=== PATIENT | female | born 1980 | race Caucasian/White ===

== ENCOUNTER 2019-11-26 16:47 | Emergency (ER) | payer OTHER ==
[~2019-11-26] VITALS: Ht 172.7 cm; Wt 86.2 kg
[2019-11-26] MEDS ORDERED: DOLOGEN CAPLET1 EACH PO (20:44)
[2019-11-26] MEDS ORDERED: TUSNEL LIQUID178 ML PO (20:44)
[2019-11-26] MEDS ORDERED: IMITREX50 MG PO (20:44)
== END 2019-11-26 20:58 | disposition home or self-care (01) ==
LOC: ER 16:47
DX: B34.8 Other viral infections of unspecified site (principal)

== ENCOUNTER 2025-02-15 14:30 | Outpatient (CLI) | payer OTHER ==
[~2025-02-15 14:30] MED LIST: DOLOGEN CAPLET1 EACH PO; IMITREX50 MG PO; TUSNEL LIQUID178 ML PO
== END 2025-02-15 14:54 | disposition home or self-care (01) ==
LOC: MAMO-SONO 14:30
PROVIDERS: ATTEND Internal Medicine
DX: M54.50 Low back pain, unspecified (principal); G62.9 Polyneuropathy, unspecified; G43.119 Migraine with aura, intractable, without status migrainosus; N20.0 Calculus of kidney; Z12.11 Encounter for screening for malignant neoplasm of colon; Z12.31 Encounter for screening mammogram for malignant neoplasm of breast; N64.0 Fissure and fistula of nipple; N64.4 Mastodynia